=== PATIENT | male | born 1950 | race Caucasian/White ===

== ENCOUNTER 2021-07-25 14:55 | Emergency (ER) | payer MEDICARE, OTHER ==
[~2021-07-25] VITALS: Ht 177.8 cm; Wt 102.1 kg
--- NOTE | 2021-07-25 15:00 | NUR ---
Dr Hopper at the bedside for MSE.
[2021-07-25] MEDS ORDERED: HYDROCODONE/APAP 5-325MG TABLET PO ONE (15:15)
[2021-07-25] MEDS ORDERED: HYDROCODONE/APAP 5-325MG TABLET ONE (15:20)
[2021-07-25] MEDS ORDERED: [UNRECOGNIZED DRUG - CODE] PO (15:21)
[2021-07-25] MEDS ORDERED: OMEP20CA15 PO (15:21)
[2021-07-25] MEDS ORDERED: FINA5TAB11 PO (15:21)
[2021-07-25] MEDS ORDERED: ATOR20TA PO (15:21)
[2021-07-25] MEDS ORDERED: DICL50TA9 PO (15:21)
[2021-07-25] MEDS ORDERED: ASPI81TA31 PO (15:21)
[2021-07-25] MEDS ORDERED: INSU100I26 SQ (15:21)
[2021-07-25] MEDS ORDERED: LISI20TA30 PO (15:21)
[2021-07-25] MEDS ORDERED: GLIM4TAB37 PO (15:21)
[2021-07-25] MEDS ORDERED: GABA-532 PO (15:21)
[2021-07-25] MEDS ORDERED: TAMS-3 PO (15:21)
[2021-07-25] MEDS ORDERED: QUET50TA PO (15:21)
[2021-07-25] MEDS ORDERED: HUMULIN R SQ (15:21)
[2021-07-25] MEDS ORDERED: LEVO50TA8 PO (15:21)
[2021-07-25] MEDS ORDERED: METF-442 PO (15:21)
[2021-07-25] MEDS ORDERED: CLON2TAB11 PO (15:21)
--- NOTE | 2021-07-25 16:50 | NUR ---
Placed a call to pt's son french for d/c and pickup,ETA 40 min.
[2021-07-25 17:14] VITALS: BP 155/89
--- NOTE | 2021-07-25 17:21 | NUR ---
PT left ER accompained by son.
--- NOTE | 2021-07-25 17:21 | NUR ---
Patient discharged to home in stable condition. Written and verbal after care instructions given. Patient verbalizes understanding of instructions. Stressed follow up or return to ER for worsening s/s.
== END 2021-07-25 17:22 | disposition home or self-care (01) ==
LOC: ER 14:55
DX: M25.552 Pain in left hip (principal); Z91.81 History of falling; M25.462 Effusion, left knee; M25.461 Effusion, right knee; M17.0 Bilateral primary osteoarthritis of knee; N40.0 Benign prostatic hyperplasia without lower urinary tract symptoms; K21.9 Gastro-esophageal reflux disease without esophagitis; E78.5 Hyperlipidemia, unspecified; E11.9 Type 2 diabetes mellitus without complications; Z79.4 Long term (current) use of insulin
CPT/HCPCS: 72192; 73551; A4663